=== PATIENT | male | born 1950 | race Caucasian/White ===

== ENCOUNTER → 2018-11-14 | Outpatient (CLI) | payer MEDICARE | LOC: COL.RAD 11:09 | DX: M51.06 Intervertebral disc disorders with myelopathy, lumbar region (principal); M47.16 Other spondylosis with myelopathy, lumbar region; R26.81 Unsteadiness on feet ==

== ENCOUNTER → 2018-11-25 | Outpatient (CLI) | payer MEDICARE | LOC: BHSO 12:49 | DX: F41.1 Generalized anxiety disorder (principal) ==

== ENCOUNTER → 2018-12-26 | Outpatient (CLI) | payer MEDICARE | LOC: BHSO 13:29 | DX: F41.1 Generalized anxiety disorder (principal) | CPT/HCPCS: G0463 ==

== ENCOUNTER → 2019-03-27 | Outpatient (CLI) | payer MEDICARE | LOC: BHSO 12:55 | DX: F41.0 Panic disorder [episodic paroxysmal anxiety] (principal) | CPT/HCPCS: G0463 ==

== ENCOUNTER → 2019-06-26 | Outpatient (CLI) | payer MEDICARE | LOC: BHSO 11:16 | DX: F41.1 Generalized anxiety disorder (principal) | CPT/HCPCS: G0463 ==

== ENCOUNTER → 2019-11-30 | Outpatient (CLI) | payer MEDICARE | LOC: BHSO 10:52 | DX: F41.1 Generalized anxiety disorder (principal) | CPT/HCPCS: G0463 ==

== ENCOUNTER → 2020-01-10 | Outpatient (CLI) | payer MEDICARE | LOC: BHSO 13:34 | DX: F41.1 Generalized anxiety disorder (principal) | CPT/HCPCS: G0463 ==

== ENCOUNTER → 2021-03-26 | Outpatient (CLI) | payer MEDICARE | LOC: COL.CARD 12:13 | DX: R41.89 Other symptoms and signs involving cognitive functions and awareness (principal); R40.4 Transient alteration of awareness ==

== ENCOUNTER 2021-06-07 15:06 | Inpatient (IN) | payer MEDICARE ==
[~2021-06-07] VITALS: Ht 180.3 cm; Wt 76.6 kg
[2021-06-07] VITALS (173 sets, daily range): BP systolic 70–143; BP diastolic 46–78; PULSE 79; TEMP 98.7; O2SAT 86–100
--- NOTE | 2021-06-07 17:10 | NUR ---
PT arrived via EMS. PT on BIPAP. PT is in respiratory distress and using accessory muscle to breathe and grunting. PT was moved to ICU04. PT was asked if he would want to be intubated and placed on mechanical ventilation, ART line placed, and a central line. PT consented verbally YES, consent was signed. Room is prepared for intubation. AA, RT called.
--- NOTE | 2021-06-07 18:23 | NUR ---
AA sedated, intubated PT, See notes. 1822: 8.0 ETT 26 @ Teeth. During intubation SATS fell into the mid 80s but quickly recovered with VENT to 100 %. VENT settings: FIO2 100%, TV 500, R 24 P 14 Art Line placed by AA @184 right radial. OG placed @1840 59 @ lip with gastric drainage, placed on LIS. PT sedation maintenace started- PROP and FENT,LEVO see GTT titrations. Xray done @ 1850, see report. Will continue to monitor closely.
[2021-06-07] MEDS ORDERED: PEPCID 20MG TAB20 MG PO (18:58)
[2021-06-07] MEDS ORDERED: ASPIRIN 81M81 MG/TA2 PO (18:59)
[2021-06-07] MEDS ORDERED: HYZAAR 25 MG-101 TAB PO (18:59)
[2021-06-07] MEDS ORDERED: OMEGA-3 1000 MG1 CAP PO (18:59)
[2021-06-07] MEDS ORDERED: MULTI VITAMINS1 TAB PO (18:59)
[2021-06-07] MEDS ORDERED: DEPAKOTE 250MG250 MG PO (19:00)
[2021-06-07] MEDS ORDERED: ZOLOFT 100MG100 MG PO (19:00)
[2021-06-07] MEDS ORDERED: VITAMINC1000TA (19:00)
[2021-06-07] MEDS ORDERED: TURMERIC500 MG PO (19:00)
[2021-06-07] MEDS ORDERED: PROSCAR 5MG5 MG PO (19:00)
--- NOTE | 2021-06-07 19:00 | NUR ---
Received report from XI Orozco.
[2021-06-07] MEDS ORDERED: NATURE'S BLE1000 MCG (19:01)
--- NOTE | 2021-06-07 19:30 | NUR ---
Patient intubated and sedated. Resting quietly in bed. Continues to receive fentanyl, propofol, and levophed drips. Tolerating well. Vitals within normal limits.
--- NOTE | 2021-06-07 20:30 | NUR ---
Dr. Mckinley at bedside for central line insertion at approximately 1999. Right femoral non-tunneled triple lumen placed. Per Dr. Mckinley, x-ray not needed to confirm placement. Line available to use.
[2021-06-07 21:42] LABS: C-REACTIVE PROTEIN 22.98 mg/dL (0.00-0.50)
[2021-06-07 21:59] LABS: VALPROIC ACID (DEPAKENE) < 12.5 ug/mL (43.5-90.5)
[2021-06-08] VITALS (608 sets, daily range): BP systolic 98–147; BP diastolic 52–75; PULSE 58–74; TEMP 97.9–99.1; O2SAT 70–100
[2021-06-08 03:55] LABS: ARTERIAL BLD GAS O2 SATURATION 98.4 % (92-100); ARTERIAL BLD GAS TCO2 CT 24.7; ARTERIAL BLOOD GAS BASE EXCESS -0.8 (-2-2); ARTERIAL BLOOD GAS HCO3 23.5 meq/L (22-26); ARTERIAL BLOOD GAS pH 7.41 (7.35-7.45)
[2021-06-08 03:56] LABS: ARTERIAL BLOOD GAS PO2 134.1 mmHg (80-100)
[2021-06-08 05:13] LABS: BASO % 0.2 % (0.0-2.0); EOS % 0.1 % (0.0-4.0); GRAN # 20.7 K/mm3 (1.4-6.5); GRAN % 92.7 % (42.2-75.2); HEMOGLOBIN 12.1 g/dl (13.5-18.0); LYMPH # 0.8 K/mm3 (1.2-3.4); LYMPH % 3.3 % (20.0-51.0); MEAN CELL VOLUME 90 fl (80.0-100.0); MEAN CORPUSCULAR HEMOGLOBIN 30 pg (27-31); MEAN CORPUSCULAR HGB CONC 33 g/dl (33.0-37.0); MEAN PLATELET VOLUME 10.8 fl (7.4-10.4); MONO # 0.5 K/mm3 (0.1-0.6); MONO % 2.3 % (1.7-9.3); PLATELET COUNT 334 K/mm3 (130-400); RED BLOOD COUNT 4.07 M/mm3 (4.20-5.60); REDCELL DISTRIBUTION WIDTH-CV 13.9 % (11.5-14.5)
[2021-06-08 05:17] LABS: HEMATOCRIT 36.5 % (42.0-52.0)
[2021-06-08 05:37] LABS: CALCIUM 7.4 mg/dL (8.4-10.2); CREATININE, serum 0.7 mg/dL (0.72-1.25); MAGNESIUM 2.4 mg/dL (1.6-2.6); PHOSPHOROUS 3.3 mg/dL (2.3-4.7); POTASSIUM 3.4 mmol/L (3.5-4.5)
--- NOTE | 2021-06-08 07:25 | NUR ---
Report given to XI Dugan.
--- NOTE | 2021-06-08 11:26 | NUR ---
Erin spoke with , Xiomara via phone due to pt is covid + and intubated. The reports prior to coming to hospital the pt was independent on all ADLs and did not use any DME and still drives. The pt PCP is salvatore Woody and gets his medications from [facility] or [facility] depending on intermediate meds. Xiomara reports they have a DPOA-HC. Xiomara, aylin, . d/c:home w/
--- NOTE | 2021-06-08 16:47 | NUR ---
Pt tolerated pronation well with no difficulties.
[2021-06-09] VITALS (17 sets, daily range): BP systolic 100–139; BP diastolic 55–82; PULSE 64–97; TEMP 97.9–99.1
[2021-06-09 03:56] LABS: ARTERIAL BLD GAS O2 SATURATION 96.1 % (92-100); ARTERIAL BLOOD GAS BASE EXCESS -0.9 (-2-2); ARTERIAL BLOOD GAS HCO3 22.9 meq/L (22-26); ARTERIAL BLOOD GAS PCO2 35.4 mmHg (35-45); ARTERIAL BLOOD GAS PO2 80.7 mmHg (80-100); ARTERIAL BLOOD GAS pH 7.43 (7.35-7.45)
[2021-06-09 04:15] LABS: HEMOGLOBIN 11.9 g/dl (13.5-18.0); MEAN CELL VOLUME 90 fl (80.0-100.0); MEAN CORPUSCULAR HEMOGLOBIN 30 pg (27-31); MEAN CORPUSCULAR HGB CONC 33 g/dl (33.0-37.0); MEAN PLATELET VOLUME 10.7 fl (7.4-10.4); PLATELET COUNT 323 K/mm3 (130-400); RED BLOOD COUNT 4.03 M/mm3 (4.20-5.60)
[2021-06-09 04:23] LABS: HEMATOCRIT 36.4 % (42.0-52.0)
[2021-06-09 04:46] LABS: ALBUMIN 1.9 gm/dL (3.4-4.8); BILIRUBIN,TOTAL 0.6 mg/dL (0.2-1.2); CALCIUM 7.5 mg/dL (8.4-10.2); CREATININE, serum 0.65 mg/dL (0.72-1.25); MAGNESIUM 2.6 mg/dL (1.6-2.6); PHOSPHOROUS 2.1 mg/dL (2.3-4.7); POTASSIUM 3.8 mmol/L (3.5-4.5)
[2021-06-09 04:52] LABS: LYMPHOCYTE 4 % (20.0-51.0); NEUTROPHILS 95 % (42.0-75.2); PLATELET ESTIMATE NORMAL (NORMAL)
--- NOTE | 2021-06-09 06:29 | NUR ---
NO SEDATION VACATION PATIENT IS PRONE
--- NOTE | 2021-06-09 07:00 | NUR ---
Assumed care of pt. All lines,tubed,GTTS checked and verified. VSS. PT is still proned and tolerating tube feed at 25ml/hr.
--- NOTE | 2021-06-09 11:02 | NUR ---
Chair Maker contacted Nell Chair Maker at patient's PCP office and requested copy of DPOA-HC. Nell faxed DPOA-HC which designates patient's , Xiomara as primary. Patient has a secondary named Christian. JB placed DPOA-HC on patient's chart.
--- NOTE | 2021-06-09 17:20 | NUR ---
PT BECOMES AGGITATED WHILE PRONED. INCREASED SEDATION IS NEEDED.
[2021-06-10] VITALS (603 sets, daily range): BP systolic 99–137; BP diastolic 58–72; PULSE 60–87; TEMP 96.7–98; O2SAT 79–100
[2021-06-10 04:17] LABS: ARTERIAL BLD GAS O2 SATURATION 94.7 % (92-100); ARTERIAL BLD GAS TCO2 CT 26.6; ARTERIAL BLOOD GAS BASE EXCESS 0.8 (-2-2); ARTERIAL BLOOD GAS HCO3 25.4 meq/L (22-26); ARTERIAL BLOOD GAS PCO2 40.7 mmHg (35-45); ARTERIAL BLOOD GAS PO2 71.2 mmHg (80-100); ARTERIAL BLOOD GAS pH 7.41 (7.35-7.45)
[2021-06-10 05:16] LABS: HEMOGLOBIN 11.7 g/dl (13.5-18.0); MEAN CELL VOLUME 90 fl (80.0-100.0); MEAN CORPUSCULAR HEMOGLOBIN 29 pg (27-31); MEAN CORPUSCULAR HGB CONC 32 g/dl (33.0-37.0); PLATELET COUNT 369 K/mm3 (130-400); RED BLOOD COUNT 4.03 M/mm3 (4.20-5.60); REDCELL DISTRIBUTION WIDTH-CV 13.9 % (11.5-14.5)
[2021-06-10 05:30] LABS: HEMATOCRIT 36.2 % (42.0-52.0)
[2021-06-10 05:31] LABS: CALCIUM 7.4 mg/dL (8.4-10.2); CREATININE, serum 0.61 mg/dL (0.72-1.25); MAGNESIUM 2.8 mg/dL (1.6-2.6); PHOSPHOROUS 2.5 mg/dL (2.3-4.7); POTASSIUM 4.3 mmol/L (3.5-4.5)
--- NOTE | 2021-06-10 05:51 | NUR ---
NO SEDATION VACATION PATIENT IS PRONE
[2021-06-10 06:04] LABS: LYMPHOCYTE 5 % (20.0-51.0); METAMYELOCYTE 1 % (0-0); NEUTROPHILS 92 % (42.0-75.2)
[2021-06-10 06:05] LABS: PLATELET ESTIMATE NORMAL (NORMAL)
--- NOTE | 2021-06-10 15:30 | NUR ---
ARTERIAL LINE AND RIGHT FEMORAL CENTRAL LINE ARE DISCONTINUED PER DR. GONZALEZ VERBAL ORDER. THE RIGHT FEMORAL SITE BLEEDS FOR LONGER PERIOD OF TIME THAN NORMAL. FIRM PRESSURE WAS HELD FOR APPROXIMATELY 10 MINUTES PRIOR TO PLACING DRESSING.
--- NOTE | 2021-06-10 16:15 | NUR ---
UPON ENTERING THE ROOM TO PRONE PATIENT. BLOOD IS SEE ON SHEET UNDER PATIENT. HE HAD BEEN HAVING A CONSISTENT OOZE FROM RIGHT FEMORAL VENOUS SITE. PATIENT IS CLEANED UP AND PRESSURE HELD TO SITE FOR SEVERAL MORE MINUTES PRIOR TO PLACING A PRESSURE DRESSING TO THE RIGHT GROIN SITE. SITE OBSERVED FOR SEVERAL MINUTES THEN ONCE DETERMINED IT IS STABLE, PATIENT WAS PLACED IN PRONE POSITION.
--- NOTE | 2021-06-10 17:57 | NUR ---
PATIENT CHECKED MULTIPLE TIMES AFTER PRONING TO MAKE SURE HIS GROIN SITE IS STABLE. NO BLEEDING OBSERVED. PRESSURE DRESSING REMAINS IN PLACE.
[2021-06-11] VITALS (640 sets, daily range): BP systolic 117–137; BP diastolic 67–71; PULSE 58–76; TEMP 97.6–98.4; O2SAT 80–99
[2021-06-11 03:49] LABS: ARTERIAL BLD GAS O2 SATURATION 93.6 % (92-100); ARTERIAL BLD GAS TCO2 CT 27.2; ARTERIAL BLOOD GAS BASE EXCESS 1.4 (-2-2); ARTERIAL BLOOD GAS HCO3 25.9 meq/L (22-26); ARTERIAL BLOOD GAS PCO2 40.6 mmHg (35-45); ARTERIAL BLOOD GAS PO2 63.4 mmHg (80-100); ARTERIAL BLOOD GAS pH 7.42 (7.35-7.45)
--- NOTE | 2021-06-11 05:04 | NUR ---
SEDATION VACATION NOT DONE DUE TO PRONE POSITIONING.
[2021-06-11 05:27] LABS: HEMOGLOBIN 11.7 g/dl (13.5-18.0); MEAN CELL VOLUME 90 fl (80.0-100.0); MEAN CORPUSCULAR HEMOGLOBIN 30 pg (27-31); MEAN CORPUSCULAR HGB CONC 34 g/dl (33.0-37.0); MEAN PLATELET VOLUME 11.4 fl (7.4-10.4); PLATELET COUNT 364 K/mm3 (130-400); RED BLOOD COUNT 3.88 M/mm3 (4.20-5.60); REDCELL DISTRIBUTION WIDTH-CV 13.9 % (11.5-14.5)
[2021-06-11 05:29] LABS: HEMATOCRIT 34.9 % (42.0-52.0)
[2021-06-11 05:40] LABS: CALCIUM 7.4 mg/dL (8.4-10.2); CREATININE, serum 0.55 mg/dL (0.72-1.25); POTASSIUM 4.5 mmol/L (3.5-4.5)
[2021-06-11 05:51] LABS: C-REACTIVE PROTEIN 6.82 mg/dL (0.00-0.50)
--- NOTE | 2021-06-11 07:30 | NUR ---
RECEIVED REPORT FROM XI LUBIN. PT RESTING IN PRONED POSITION. VENT SETTINGS: AC, 50%, PEEP 10, RR 24, TV 500. FC PATENT AND DRAINING TO GRAVITY. OGT WITH TF INFUSING AT 25 ML/HR. INSHORE UNDERSEA WARFARE OFFICER IN PLACE. VSS. SEE GTT FLOWSHEET.
--- NOTE | 2021-06-11 08:04 | NUR ---
DR GONZALEZ AT BEDSIDE. ADJUSTING VENT SETTIGNS TO FIO2 OF 45%.
--- NOTE | 2021-06-11 09:20 | NUR ---
PT UNPRONED AT THIS TIME. TOLERATED WELL. TF INCREASED TO 80 ML/HR PER ORDERS WHILE SUPINE.
--- NOTE | 2021-06-11 16:05 | NUR ---
PT PRONED AT THIS TIME. TOLERATED WELL. TF DECREASED BACK TO 25ML/HR.
--- NOTE | 2021-06-11 21:00 | NUR ---
Patient intubated and sedated. Also prone. Patient repositioned. Assessment complete and charted.
[2021-06-12] VITALS (712 sets, daily range): BP systolic 107–136; BP diastolic 54–71; PULSE 67–78; TEMP 97–99; O2SAT 81–100
[2021-06-12 05:33] LABS: HEMOGLOBIN 11.7 g/dl (13.5-18.0); MEAN CELL VOLUME 89 fl (80.0-100.0); MEAN CORPUSCULAR HEMOGLOBIN 30 pg (27-31); MEAN CORPUSCULAR HGB CONC 33 g/dl (33.0-37.0); MEAN PLATELET VOLUME 11.8 fl (7.4-10.4); PLATELET COUNT 374 K/mm3 (130-400); RED BLOOD COUNT 3.96 M/mm3 (4.20-5.60); REDCELL DISTRIBUTION WIDTH-CV 13.5 % (11.5-14.5)
[2021-06-12 05:38] LABS: HEMATOCRIT 35.3 % (42.0-52.0)
--- NOTE | 2021-06-12 05:49 | NUR ---
Patient remained intubated and sedated throughout night. Otherwise uneventful night. Repositioned this AM. Currently prone.
[2021-06-12 05:51] LABS: BILIRUBIN,TOTAL 0.3 mg/dL (0.2-1.2); CALCIUM 7.4 mg/dL (8.4-10.2); CREATININE, serum 0.57 mg/dL (0.72-1.25); POTASSIUM 4.5 mmol/L (3.5-4.5)
[2021-06-12 06:12] LABS: BAND 1 % (0-10); EOSINOPHIL 1 % (0-4); LYMPHOCYTE 6 % (20.0-51.0); NEUTROPHILS 91 % (42.0-75.2)
[2021-06-12 06:13] LABS: PLATELET ESTIMATE NORMAL (NORMAL)
--- NOTE | 2021-06-12 07:00 | NUR ---
RECEIVED REPORT FROM XI ORTA. PT RESTING IN PRONE POSITION, NO CHANGES ON VENT SETTINGS. OGT WITH TF INFUSING AT 25 ML/HR. SCHOLARSHIP COUNSELOR IN PLACE. VSS. SEE GTT FLOWSHEET.
--- NOTE | 2021-06-12 07:23 | NUR ---
Report given to XI Magana
--- NOTE | 2021-06-12 08:15 | NUR ---
DR GONZALEZ AT BEDSIDE FOR ASSESSMENT. DECREASES FIO2 TO 40%, PROVIDER STATES IF POX DOES NOT REMAIN ABOVE 90% CONSISTENTLY TURN FIO2 BACK UP. IF HE TOELRATES OK, THEN TRY TO DECREASE PEEP TO 9 TODAY BUT LATER. PT UNPRONED AT THIS TIME. TOLERATED OK. TF INCREASED TO 80ML/HR WHILE SUPINE PER INSTRUCTIONS.
--- NOTE | 2021-06-12 09:00 | NUR ---
PT SWITCHED FROM PROPOFOL TO VERSED BECAUSE TRIGLYCERIDES LEVEL, PER DR GONZALEZ. DR GONZALEZ STATES IT IS OK TO INCREASE VERSED QUICKER TO ACCOMADTE THE SWITCH.
--- NOTE | 2021-06-12 15:00 | NUR ---
Contacted to change PICC dressing. sterile dressing change done with a moderate amount of reddish gelled fluid. site cleaned with chloraprep x 2, skin prep, stat lock, and tegaderm applied. no further drainage noted. arm wrapped with an yuliana to protect catheter.
--- NOTE | 2021-06-12 15:50 | NUR ---
TF DECREASED TO 64 ML/HR WITH FLUSHES DECRESED TO 30 ML Q4HR, PER NEW ORDERS.
--- NOTE | 2021-06-12 17:05 | NUR ---
PT CLEANED UP AND ROLLED IN BED. PT COUGHS AGAINST VENT AND OPENS EYES AND LOOKS AROUND. DOES NOT FOLLOW COMMANDS. PT ABLE TO FALL BACK TO SLEEP ONCE NOT BEING MESSED WITH ANYMORE. VSS.
[2021-06-13] VITALS (698 sets, daily range): BP systolic 101–186; BP diastolic 60–98; PULSE 74–132; TEMP 98.1–100; O2SAT 76–100
[2021-06-13 04:28] LABS: ARTERIAL BLD GAS O2 SATURATION 82.9 % (92-100); ARTERIAL BLOOD GAS HCO3 30.5 meq/L (22-26); ARTERIAL BLOOD GAS PCO2 48.3 mmHg (35-45); ARTERIAL BLOOD GAS pH 7.42 (7.35-7.45)
[2021-06-13 04:29] LABS: HEMATOCRIT 37.4 % (42.0-52.0); MEAN CELL VOLUME 91 fl (80.0-100.0); MEAN CORPUSCULAR HEMOGLOBIN 29 pg (27-31); MEAN CORPUSCULAR HGB CONC 32 g/dl (33.0-37.0); MEAN PLATELET VOLUME 10.9 fl (7.4-10.4); PLATELET COUNT 385 K/mm3 (130-400)
[2021-06-13 04:36] LABS: ARTERIAL BLOOD GAS PO2 46.7 mmHg (80-100)
[2021-06-13 04:46] LABS: CALCIUM 7.3 mg/dL (8.4-10.2); CREATININE, serum 0.6 mg/dL (0.72-1.25); POTASSIUM 4.3 mmol/L (3.5-4.5)
[2021-06-13 05:08] LABS: ANISOCYTOSIS 1+; BAND 12 % (0-10); EOSINOPHIL 2 % (0-4); HYPOCHROMIA 1+; LYMPHOCYTE 10 % (20.0-51.0); METAMYELOCYTE 1 % (0-0); NEUTROPHILS 73 % (42.0-75.2)
--- NOTE | 2021-06-13 07:00 | NUR ---
Pt is intubated and sedated. VSS. Will continue to montior.
--- NOTE | 2021-06-13 09:15 | NUR ---
SEDATION PLACED ON HOLD PER . PT DOES NOT FOLLOW COMMANDS OR RESPOND TO PAIN AT THIS TIME. 0945-PT PLACED ON VENT WEANING TRIAL AND IS APPEARING TO DO WELL AT THIS TIME. WILL CONTINUE TO MONTIOR. 1000- PT STILL NOT FOLLOWING COMMANDS, WILL CONTINUE TO ASSESS. IF NO IMPOVEMENT BY [address]
--- NOTE | 2021-06-13 11:00 | NUR ---
SEDATION RESTARTED PER
--- NOTE | 2021-06-13 11:00 | NUR ---
PT ABLE TO FOLLOW COMMANDS AND MOVE ALL EXTREMETIES. BILATERAL HANDS WEAK AND SWOLLEN SO UNABLE TO DEFENCE INTELLIGENCE ANALYST HARD. PT BECOMING HYPERTENSIVE, TACHYCARDIC, AND HYPOXIC. NOTIFIED. SEDATION RESTARTED. PT PLACED BACK ON ASSIST CONTROL MODE AND PEEP INCREASED TO 10. WILL CONTINUE TO MONITOR.
[2021-06-13 12:07] LABS: ARTERIAL BLD GAS O2 SATURATION 85.5 % (92-100); ARTERIAL BLD GAS TCO2 CT 28.5; ARTERIAL BLOOD GAS BASE EXCESS 2.7 (-2-2); ARTERIAL BLOOD GAS HCO3 27.2 meq/L (22-26); ARTERIAL BLOOD GAS PCO2 41.9 mmHg (35-45); ARTERIAL BLOOD GAS pH 7.43 (7.35-7.45)
--- NOTE | 2021-06-13 17:00 | NUR ---
SEDATION VACATION DONE EARLIER TODAY. PT CURRENTLY PRONED.
[2021-06-14] VITALS (769 sets, daily range): BP systolic 109–128; BP diastolic 65–82; PULSE 74–93; TEMP 97.8–99.2; O2SAT 89–100
[2021-06-14 03:02] LABS: ARTERIAL BLD GAS O2 SATURATION 98.3 % (92-100); ARTERIAL BLD GAS TCO2 CT 31.6; ARTERIAL BLOOD GAS BASE EXCESS 5.6 (-2-2); ARTERIAL BLOOD GAS HCO3 30.2 meq/L (22-26); ARTERIAL BLOOD GAS PCO2 44.1 mmHg (35-45); ARTERIAL BLOOD GAS PO2 107.5 mmHg (80-100); ARTERIAL BLOOD GAS pH 7.45 (7.35-7.45)
[2021-06-14 04:36] LABS: HEMATOCRIT 37.2 % (42.0-52.0); HEMOGLOBIN 11.9 g/dl (13.5-18.0); MEAN CELL VOLUME 91 fl (80.0-100.0); MEAN CORPUSCULAR HEMOGLOBIN 29 pg (27-31); MEAN CORPUSCULAR HGB CONC 32 g/dl (33.0-37.0); MEAN PLATELET VOLUME 11.2 fl (7.4-10.4); PLATELET COUNT 365 K/mm3 (130-400); RED BLOOD COUNT 4.08 M/mm3 (4.20-5.60); REDCELL DISTRIBUTION WIDTH-CV 14.2 % (11.5-14.5)
[2021-06-14 04:52] LABS: CALCIUM 7.7 mg/dL (8.4-10.2); CREATININE, serum 0.6 mg/dL (0.72-1.25); POTASSIUM 4.5 mmol/L (3.5-4.5)
[2021-06-14 05:16] LABS: BAND 10 % (0-10); EOSINOPHIL 1 % (0-4); LYMPHOCYTE 7 % (20.0-51.0); METAMYELOCYTE 1 % (0-0); NEUTROPHILS 79 % (42.0-75.2); NUCLEATED RED BLOOD CELL 1 (0-6)
[2021-06-14 05:17] LABS: ANISOCYTOSIS 1+
--- NOTE | 2021-06-14 07:00 | NUR ---
Pt is intubated, sedated, and proned. VSS. Will continue to monitor.
--- NOTE | 2021-06-14 20:30 | NUR ---
PM ASSESSMENT COMPLETE. PT TOLERATING VENTILATOR WELL, CURRENTLY IN PRONE POSITION. MOVES EXTREMETIES AND OPENS EYES TO SPEECH. R WRIST PIV UNABLE TO FLUSH, REMOVED. TIP INTACT, PRESSURE HELD AND GAUZE DRESSING APPLIED. SPOKE TO PT'S OVER PHONE, UPDATED WITH POC. WILL CONTINUING FREQUENT REPOSITIONING AND ORAL CARE OVER NIGHT. VSS AT THIS TIME, WILL CONTINUE TO MONITOR.
--- NOTE | 2021-06-14 22:39 | NUR ---
PT REPOSITIONED TO FACE OPPOSITE SIDE WHILE PRONE. NOTED SKIN TEAR TO LEFT EAR. GAUZE DRESSING PLACED.
[2021-06-15] VITALS (664 sets, daily range): BP systolic 115–137; BP diastolic 61–79; PULSE 75–83; TEMP 97.2–98; O2SAT 86–100
[2021-06-15 04:44] LABS: ARTERIAL BLD GAS O2 SATURATION 97.8 % (92-100); ARTERIAL BLD GAS TCO2 CT 32.6; ARTERIAL BLOOD GAS BASE EXCESS 6.1 (-2-2); ARTERIAL BLOOD GAS HCO3 31.1 meq/L (22-26); ARTERIAL BLOOD GAS PCO2 46.8 mmHg (35-45); ARTERIAL BLOOD GAS PO2 98.1 mmHg (80-100); ARTERIAL BLOOD GAS pH 7.44 (7.35-7.45)
[2021-06-15 04:56] LABS: HEMOGLOBIN 11.2 g/dl (13.5-18.0); MEAN CELL VOLUME 91 fl (80.0-100.0); MEAN CORPUSCULAR HEMOGLOBIN 30 pg (27-31); MEAN CORPUSCULAR HGB CONC 33 g/dl (33.0-37.0); MEAN PLATELET VOLUME 10.8 fl (7.4-10.4); PLATELET COUNT 327 K/mm3 (130-400); REDCELL DISTRIBUTION WIDTH-CV 14.4 % (11.5-14.5)
[2021-06-15 05:00] LABS: HEMATOCRIT 34.4 % (42.0-52.0)
--- NOTE | 2021-06-15 05:01 | NUR ---
SEDATION VACATION NOT DONE DUE TO PRONE POSITIONING.
[2021-06-15 05:15] LABS: CALCIUM 7.6 mg/dL (8.4-10.2); CREATININE, serum 0.56 mg/dL (0.72-1.25); POTASSIUM 4.7 mmol/L (3.5-4.5)
[2021-06-15 05:36] LABS: BAND 5 % (0-10); BASOPHIL 1 % (0-2); EOSINOPHIL 3 % (0-4); HYPOCHROMIA 2+; LYMPHOCYTE 9 % (20.0-51.0); METAMYELOCYTE 2 % (0-0); NEUTROPHILS 76 % (42.0-75.2); NUCLEATED RED BLOOD CELL 1 (0-6); PLATELET ESTIMATE NORMAL (NORMAL)
[2021-06-15 05:37] LABS: ANISOCYTOSIS 1+
[2021-06-15 05:38] LABS: OVALOCYTES 1+
--- NOTE | 2021-06-15 07:45 | NUR ---
Pt morning assessment completed. Medications, lines and tubes verified. PT opens eyes to stimulation. Pt turned form prone to supine with assistance of RT and 3 RNs. Mendiola care doen at this time.
--- NOTE | 2021-06-15 12:59 | NUR ---
Gave cruzito an update on PTs status.
--- NOTE | 2021-06-15 15:53 | NUR ---
Patient remains on vent. Patient's provided update from patient's RN.
--- NOTE | 2021-06-15 15:57 | NUR ---
PT PRONED WITH ASSISTANCE OF RT AND 2 RNS WITHOUT COMPLICATION.
[2021-06-16] VITALS (541 sets, daily range): BP systolic 106–127; BP diastolic 60–72; PULSE 70–75; TEMP 97.7–99; O2SAT 67–100
[2021-06-16 04:02] LABS: ARTERIAL BLD GAS O2 SATURATION 97.4 % (92-100); ARTERIAL BLD GAS TCO2 CT 34.7; ARTERIAL BLOOD GAS HCO3 33.1 meq/L (22-26); ARTERIAL BLOOD GAS PCO2 51.6 mmHg (35-45); ARTERIAL BLOOD GAS PO2 93.3 mmHg (80-100); ARTERIAL BLOOD GAS pH 7.43 (7.35-7.45)
[2021-06-16 04:07] LABS: MEAN CELL VOLUME 92 fl (80.0-100.0); MEAN CORPUSCULAR HEMOGLOBIN 29 pg (27-31); MEAN CORPUSCULAR HGB CONC 31 g/dl (33.0-37.0); MEAN PLATELET VOLUME 10.5 fl (7.4-10.4); PLATELET COUNT 297 K/mm3 (130-400); REDCELL DISTRIBUTION WIDTH-CV 14.5 % (11.5-14.5)
[2021-06-16 04:27] LABS: ALBUMIN 2.4 gm/dL (3.4-4.8); BILIRUBIN,TOTAL 0.4 mg/dL (0.2-1.2); CALCIUM 7.9 mg/dL (8.4-10.2); CREATININE, serum 0.54 mg/dL (0.72-1.25); POTASSIUM 4.5 mmol/L (3.5-4.5); TOTAL PROTEIN 4.7 gm/dL (6.2-8.1)
[2021-06-16 05:11] LABS: BAND 4 % (0-10); BASOPHIL 1 % (0-2); EOSINOPHIL 3 % (0-4); LYMPHOCYTE 15 % (20.0-51.0); METAMYELOCYTE 1 % (0-0); NEUTROPHILS 71 % (42.0-75.2); PLATELET ESTIMATE NORMAL (NORMAL)
[2021-06-16 05:12] LABS: HYPOCHROMIA 2+; OVALOCYTES 1+
--- NOTE | 2021-06-16 07:00 | NUR ---
RECEIVED REPORT FROM XI SHUKLA. PT RESTING IN PRONE POSITION ON VENT SETTINGS: TV 500, PEEP 10, RR 24, 50%. OGT WITH TF INFUSING AT 64 ML/HR. FC PATENT AND DRAINING TO GRAVITY. VSS. ACUPUNCTURIST IN PLACE. SEE FLOWSHEET.
--- NOTE | 2021-06-16 08:20 | NUR ---
PT UNPRONED A THIS TIME. TOLERATED WELL. VSS. DR GONZALEZ AT BEDSIDE FOR ASSESSMENT AND MAKING ADJUSTMENTS TO VENT SETTINGS: TV 480, PEEP 8, FIO2 45%.
--- NOTE | 2021-06-16 15:40 | NUR ---
PT PRONED AT THIS TIME. TOLERATED WELL. VSS. MANAGER BANK REMAIN IN PLACE.
--- NOTE | 2021-06-16 20:00 | NUR ---
Recieved report from Izzy. Pt resting in bed, proned at this time. assessment completed. does not appear to be uncomfortable or needing increased sedation. Vital signs stable at this time. Oral care completed. Red tinged oral secreations present. no return on suctioning.
[2021-06-17] VITALS (854 sets, daily range): BP systolic 101–115; BP diastolic 57–73; PULSE 71–111; TEMP 97.2–97.9; O2SAT 75–100
[2021-06-17 04:44] LABS: ARTERIAL BLD GAS O2 SATURATION 96.3 % (92-100); ARTERIAL BLD GAS TCO2 CT 33.2; ARTERIAL BLOOD GAS BASE EXCESS 7.2 (-2-2); ARTERIAL BLOOD GAS HCO3 31.8 meq/L (22-26); ARTERIAL BLOOD GAS PCO2 45.6 mmHg (35-45); ARTERIAL BLOOD GAS PO2 78.5 mmHg (80-100); ARTERIAL BLOOD GAS pH 7.46 (7.35-7.45)
[2021-06-17 04:52] LABS: HEMOGLOBIN 11.3 g/dl (13.5-18.0); MEAN CELL VOLUME 91 fl (80.0-100.0); MEAN CORPUSCULAR HEMOGLOBIN 30 pg (27-31); MEAN CORPUSCULAR HGB CONC 33 g/dl (33.0-37.0); MEAN PLATELET VOLUME 10.5 fl (7.4-10.4); PLATELET COUNT 278 K/mm3 (130-400); RED BLOOD COUNT 3.81 M/mm3 (4.20-5.60); REDCELL DISTRIBUTION WIDTH-CV 14.8 % (11.5-14.5)
[2021-06-17 04:58] LABS: HEMATOCRIT 34.7 % (42.0-52.0)
--- NOTE | 2021-06-17 05:00 | NUR ---
NO SEDATION VACATION AT THIS TIME DUE TO PRONE POSITIONING. PT DOES OPEN EYES AND APPEARS TO LOOK TOWARD MY VOICE WHEN SPOKEN TO.
[2021-06-17 05:08] LABS: CALCIUM 7.9 mg/dL (8.4-10.2); CREATININE, serum 0.55 mg/dL (0.72-1.25); MAGNESIUM 2.3 mg/dL (1.6-2.6); POTASSIUM 4.4 mmol/L (3.5-4.5)
[2021-06-17 06:13] LABS: BAND 1 % (0-10); EOSINOPHIL 3 % (0-4); LYMPHOCYTE 14 % (20.0-51.0); NEUTROPHILS 78 % (42.0-75.2); PLATELET ESTIMATE NORMAL (NORMAL)
[2021-06-17 06:15] LABS: HYPOCHROMIA 1+
[2021-06-17 06:16] LABS: ANISOCYTOSIS 1+
[2021-06-18] VITALS (699 sets, daily range): BP systolic 107–138; BP diastolic 67–79; PULSE 73–90; TEMP 97.8–99; O2SAT 84–99
--- NOTE | 2021-06-18 00:30 | NUR ---
PT BATHED, LINENS CHANGED. PICC LINE SITE NOTED TO HAVE INCREASING BLOODY DRAINGAGE. OLD DRESSING REMOVED, LARGE CLOT AROUND INSERTION SITE, NOT REMOVED. NEW DRESSING APPLIED. PER DAY SHIFT REPORT, MARÍA WITH AIVS PLANNING TO PLACE NEW DRESSING AND SPECIALIZED BIOPATCH. WILL PASS ALONG IN REPORT. PT CONTINUES TO OPEN EYES SPONTANEOUSLY, APPEARS TO LOOK AT RN, HOWEVER DOES NOT FOLLOW ANY COMMANDS TO MOVE EXTREMETIES. PASSIVE ROM DONE FREQUENTLY WITH TURNS. ORBITAL AND SCROTAL EDEMA SEEMS TO BE LESSENING. BILAT FEET AND BILAT FOREARMS/HANDS STILL EDEMATOUS. WILL CONTINUE TO MONITOR.
[2021-06-18 04:33] LABS: ARTERIAL BLD GAS O2 SATURATION 93.9 % (92-100); ARTERIAL BLD GAS TCO2 CT 33.1; ARTERIAL BLOOD GAS BASE EXCESS 7.4 (-2-2); ARTERIAL BLOOD GAS HCO3 31.7 meq/L (22-26); ARTERIAL BLOOD GAS PCO2 43.9 mmHg (35-45); ARTERIAL BLOOD GAS PO2 69.6 mmHg (80-100); ARTERIAL BLOOD GAS pH 7.48 (7.35-7.45)
[2021-06-18 04:46] LABS: HEMOGLOBIN 10.8 g/dl (13.5-18.0); MEAN CELL VOLUME 92 fl (80.0-100.0); MEAN CORPUSCULAR HEMOGLOBIN 30 pg (27-31); MEAN CORPUSCULAR HGB CONC 32 g/dl (33.0-37.0); MEAN PLATELET VOLUME 10.9 fl (7.4-10.4); PLATELET COUNT 247 K/mm3 (130-400); RED BLOOD COUNT 3.64 M/mm3 (4.20-5.60); REDCELL DISTRIBUTION WIDTH-CV 14.9 % (11.5-14.5)
[2021-06-18 04:58] LABS: HEMATOCRIT 33.4 % (42.0-52.0)
[2021-06-18 05:09] LABS: CALCIUM 8.1 mg/dL (8.4-10.2); CREATININE, serum 0.57 mg/dL (0.72-1.25); MAGNESIUM 2.3 mg/dL (1.6-2.6)
[2021-06-18 05:53] LABS: BAND 3 % (0-10); EOSINOPHIL 2 % (0-4); LYMPHOCYTE 7 % (20.0-51.0); NEUTROPHILS 81 % (42.0-75.2); PLATELET ESTIMATE NORMAL (NORMAL)
[2021-06-18 05:54] LABS: ANISOCYTOSIS 1+; HYPOCHROMIA 1+
--- NOTE | 2021-06-18 07:00 | NUR ---
Pt is intubated and sedated. VSS. Will continue to montior.
--- NOTE | 2021-06-18 11:00 | NUR ---
Xiomara came and picked up pt's wedding ring, watch, and cellphone.
--- NOTE | 2021-06-18 11:30 | NUR ---
contacted by patient's nurse and asked to perform PICC dressing change. Sterile PICC dressing change done with a large amount of congeled blood under dressing. site cleansed with choraprep x 1, skin pre, stat lock, chlorhexidine impregnated disk, thrombin patch applied, and tegaderm applied. no further dainage noted. 4 x 4 and yuliana wrap applied.
--- NOTE | 2021-06-18 17:00 | NUR ---
PREVIOUS SEDATION VACATION. 1200 PT ABLE TO MOVE EXTREMETIES AND FOLLOW COMMANDS. PT PLACED ON VENT WEANING TRIAL BUT WAS UNSUCCESSFUL. WILL CONTINUE TO MONITOR.
--- NOTE | 2021-06-18 22:45 | NUR ---
PT O2 SATURATION READING 89-90% ON CURRENT VENT SETTINGS OF 40% AND PEEP OF 5. PT REPOSITIONED, SUCTIONED, NO IMPROVEMENT. PER RT RECOMMENDATION, O2 SAT INCREASED TO 50%, PEEP AT 8. WILL CONTINUE TO MONITOR.
[2021-06-19] VITALS (738 sets, daily range): BP systolic 101–129; BP diastolic 63–77; PULSE 70–101; TEMP 98.2–99.1; O2SAT 88–100
[2021-06-19 04:46] LABS: HEMOGLOBIN 10.9 g/dl (13.5-18.0); MEAN CELL VOLUME 94 fl (80.0-100.0); MEAN CORPUSCULAR HEMOGLOBIN 30 pg (27-31); MEAN CORPUSCULAR HGB CONC 31 g/dl (33.0-37.0); MEAN PLATELET VOLUME 10.9 fl (7.4-10.4); PLATELET COUNT 221 K/mm3 (130-400); REDCELL DISTRIBUTION WIDTH-CV 15.5 % (11.5-14.5)
[2021-06-19 04:48] LABS: HEMATOCRIT 34.9 % (42.0-52.0)
[2021-06-19 05:04] LABS: CALCIUM 7.9 mg/dL (8.4-10.2); CREATININE, serum 0.59 mg/dL (0.72-1.25); MAGNESIUM 2.3 mg/dL (1.6-2.6); POTASSIUM 3.9 mmol/L (3.5-4.5)
[2021-06-19 05:10] LABS: ARTERIAL BLD GAS O2 SATURATION 96.5 % (92-100); ARTERIAL BLD GAS TCO2 CT 31.1; ARTERIAL BLOOD GAS BASE EXCESS 4.8 (-2-2); ARTERIAL BLOOD GAS HCO3 29.7 meq/L (22-26); ARTERIAL BLOOD GAS PCO2 45.5 mmHg (35-45); ARTERIAL BLOOD GAS PO2 86.8 mmHg (80-100); ARTERIAL BLOOD GAS pH 7.43 (7.35-7.45)
[2021-06-19 05:53] LABS: BAND 4 % (0-10); EOSINOPHIL 7 % (0-4); LYMPHOCYTE 18 % (20.0-51.0); METAMYELOCYTE 2 % (0-0); NEUTROPHILS 65 % (42.0-75.2)
[2021-06-19 05:54] LABS: HYPOCHROMIA 1+; POLYCHROMASIA 1+
--- NOTE | 2021-06-19 07:00 | NUR ---
REPORT RECEIVED FROM XI LUBIN. PT RESTING EASILY ON CURRENT VENT SETTINGS: TV 450, PEEP 8, 40%, RR 24. OGT WITH TF INFUSING AT 64ML/HR. VSS. ENGINEERING DESIGNER IN PLACE. FC PATENT AND DRAINING TO GRAVITY. SEE GTT FLOWSHEET.
--- NOTE | 2021-06-19 08:20 | NUR ---
DR GONZALEZ AT BEDSIDE FOR ASSESSMENT. PROVIDER PLACES ALL SEDATION ON HOLD AND TF ON HOLD AT THIS TIME. PROVIDER STATES ONCE HE STARTS WAKING UP TO HAVE RT PLACE PT ON WEANING TRIAL TO SEE HOW HE DOES. ALLOW HIM TO RIDE THE WEANING TRIAL LONG HE TOLERATES. IF HR HITS ABOVE [address] PT ON SEDATION AND BACK TO AC MODE ON VENT. CAN RESTART TF AFTER PT WAKES UP SOME AND IS TOELRATING THE WEANING TRIAL OK FOR A LITTLE BIT. TONIGHT AT MIDNIGHT, PLACE PT'S SEDATION ALL ON HOLD AND TF ON HOLD. START WEANING TRIAL ABOUT 0700 ON 06/20/21 TO POTENTIALLY EXTUBATE IF TOLERATING OK AND IS FOLLOWING COMMANDS BETTER TOMORROW.
--- NOTE | 2021-06-19 10:45 | NUR ---
WEANING TRIAL STARTED BY RT SINCE PT IS AWAKE AND LOOKING AROUND. PT DOES NOT TRACK OR FOLLOW ANY SIMPLE COMMANDS AT THIS TIME. WILL MONITOR CLOSELY FOR ANY DISTRESS OR VS CHANGES. PER DR GONZALEZ, WILL ALLOW PT TO RIDE WEANING TRIAL LONG HE TOLERATES IT AND HR IS NOT ABOVE 110 CONSISTENTLY.
--- NOTE | 2021-06-19 12:09 | NUR ---
TF RESTARTED AT 64ML/HR. PT AWAKE BUT DROWSY. PT TURNS HEAD WHEN SPOKEN TO. WIGGLES BOTH FEET UPON REQUEST. PT ABLE TO SLIGHTLY LIFT RT HAND FINGERS BUT NO LEFT, NOTED BOTH HANDS VERY SWOLLEN. EXPLAINED TO PT ABOUT WEANING TRIAL AND POC. PT ENCOURAGED TO REST AND FOCUS ON BREATHING EASILY. WILL MONITOR CLOSELY.
--- NOTE | 2021-06-19 14:45 | NUR ---
PT ATTEMPTING TO LEAN OVER AND REACH FOR ETT. HR 125. VENT CHANGED BACK TO AC MODE WITH PREVIOUS SETTINGS, SEDATION RESTARTED AT PREVIOUS RATES PER DR GONZALEZ'S INSTRUCTIONS. PT'S GOT TO TALK TO HIM ON SPEAKER PHONE PRIOR TO HIM FALLING BACK TO SLEEP. UPDATED PT'S ON POC.
--- NOTE | 2021-06-19 20:54 | NUR ---
PM ASSESSMENT COMPLETE. PT OPENING EYES SPONTANEOUSLY. WRIGGLES TOES ON COMMAND, BUT NO HAND GRASP. HANDS BOTH EDEMATOUS, ELEVATED ON PILLOWS. SPOKE TO PT'S , RAMÓN, ON PHONE AND UPDATED/REVIEWED POC FOR THE NIGHT. WILL CONTINUE TO MONITOR.
[2021-06-20] VITALS (677 sets, daily range): BP systolic 117–152; BP diastolic 70–84; PULSE 77–100; TEMP 97.4–99; O2SAT 71–100
--- NOTE | 2021-06-20 01:00 | NUR ---
FENTANYL AND VERSED BOTH STOPPED AT THIS TIME PER DAYSHIFT RN REPORT PLAN FOR WEANING TRIAL AND POSSIBLE EXTUBATION THIS AM. WILL MONITOR PT CLOSELY FOR TOLERANCE.
--- NOTE | 2021-06-20 05:04 | NUR ---
SEDATION TURNED OFF SINCE [address] GONZALEZ. PT CALM, RESPONSIVE, NODDING OR SHAKING HEAD APPROPRIATELY TO QUESTIONS. ABLE TO MOVE ALL EXTREMETIES. HR AND BP SLIGHTLY ELEVATED. WILL CONTINUE TO MONITOR FOR ANY SIGNS OF DISTRESS.
[2021-06-20 05:08] LABS: HEMOGLOBIN 11.1 g/dl (13.5-18.0); MEAN CELL VOLUME 96 fl (80.0-100.0); MEAN CORPUSCULAR HEMOGLOBIN 30 pg (27-31); MEAN CORPUSCULAR HGB CONC 31 g/dl (33.0-37.0); MEAN PLATELET VOLUME 10.7 fl (7.4-10.4); PLATELET COUNT 227 K/mm3 (130-400); RED BLOOD COUNT 3.76 M/mm3 (4.20-5.60); REDCELL DISTRIBUTION WIDTH-CV 15.9 % (11.5-14.5)
[2021-06-20 05:10] LABS: HEMATOCRIT 35.9 % (42.0-52.0)
[2021-06-20 05:24] LABS: CALCIUM 8.2 mg/dL (8.4-10.2); CREATININE, serum 0.56 mg/dL (0.72-1.25); MAGNESIUM 2.5 mg/dL (1.6-2.6)
[2021-06-20 05:32] LABS: ARTERIAL BLD GAS O2 SATURATION 96.6 % (92-100); ARTERIAL BLD GAS TCO2 CT 26.8; ARTERIAL BLOOD GAS BASE EXCESS 2.8 (-2-2); ARTERIAL BLOOD GAS HCO3 25.7 meq/L (22-26)
[2021-06-20 05:49] LABS: BAND 10 % (0-10); EOSINOPHIL 5 % (0-4); LYMPHOCYTE 12 % (20.0-51.0); METAMYELOCYTE 1 % (0-0); NEUTROPHILS 66 % (42.0-75.2)
[2021-06-20 05:50] LABS: ANISOCYTOSIS 2+
[2021-06-20 05:51] LABS: PLATELET ESTIMATE NORMAL (NORMAL)
--- NOTE | 2021-06-20 10:09 | NUR ---
0945- , Xiomara, given patient update
--- NOTE | 2021-06-20 11:33 | NUR ---
PT EXTUBATED AT 0905 WITH RT ABBI AND THIS NURSE BEDSIDE. PT PLACED ON 4L OXYMASK PATIENT MAINTAINING O2 SATURATION AT THIS TIME. PTS ARMS AND LEGS ARE WEAK. DR GONZALEZ AWARE. SOCIAL WORK CALLED FOR A [facility] EVALUATION.
--- NOTE | 2021-06-20 12:19 | NUR ---
composite layup worker gave a referral to Sedrick at [facility] and contacted , Xiomara, and advised of the above information.
[2021-06-20 12:20] LABS: ARTERIAL BLD GAS O2 SATURATION 93.2 % (92-100); ARTERIAL BLD GAS TCO2 CT 27.1; ARTERIAL BLOOD GAS BASE EXCESS 3.2 (-2-2); ARTERIAL BLOOD GAS PO2 62.9 mmHg (80-100)
--- NOTE | 2021-06-20 19:11 | NUR ---
Report given to XI Allan.
--- NOTE | 2021-06-20 20:00 | NUR ---
PATIENT IS SLOW TO REACT TO QUESTIONS/ SOME CONFUSION WITH SWALOWING/ NPO AT THIS TIME
[2021-06-21] VITALS (349 sets, daily range): BP systolic 124–147; BP diastolic 54–71; PULSE 72–87; TEMP 97.4–98.8; O2SAT 77–99
[2021-06-21 00:30] LABS: ARTERIAL BLOOD GAS BASE EXCESS 5.5 (-2-2); ARTERIAL BLOOD GAS HCO3 28.2 meq/L (22-26); ARTERIAL BLOOD GAS PCO2 34.4 mmHg (35-45); ARTERIAL BLOOD GAS PO2 61.1 mmHg (80-100); ARTERIAL BLOOD GAS pH 7.53 (7.35-7.45)
[2021-06-21 00:31] LABS: ARTERIAL BLD GAS O2 SATURATION 92.5 % (92-100); ARTERIAL BLD GAS TCO2 CT 29.2
[2021-06-21 04:56] LABS: BASO # 0.1 K/mm3 (0.0-0.2); BASO % 0.8 % (0.0-2.0); EOS # 0.2 K/mm3 (0.0-0.7); EOS % 1.7 % (0.0-4.0); GRAN # 9.2 K/mm3 (1.4-6.5); GRAN % 81.3 % (42.2-75.2); HEMOGLOBIN 11.3 g/dl (13.5-18.0); LYMPH # 1.1 K/mm3 (1.2-3.4); MEAN CELL VOLUME 94 fl (80.0-100.0); MEAN CORPUSCULAR HEMOGLOBIN 30 pg (27-31); MEAN CORPUSCULAR HGB CONC 32 g/dl (33.0-37.0); MEAN PLATELET VOLUME 10.5 fl (7.4-10.4); MONO # 0.6 K/mm3 (0.1-0.6); MONO % 5.2 % (1.7-9.3); PLATELET COUNT 199 K/mm3 (130-400); RED BLOOD COUNT 3.74 M/mm3 (4.20-5.60); REDCELL DISTRIBUTION WIDTH-CV 15.9 % (11.5-14.5)
[2021-06-21 04:58] LABS: HEMATOCRIT 35.3 % (42.0-52.0)
[2021-06-21 05:38] LABS: CALCIUM 8.3 mg/dL (8.4-10.2); CREATININE, serum 0.57 mg/dL (0.72-1.25); MAGNESIUM 2.2 mg/dL (1.6-2.6); POTASSIUM 3.2 mmol/L (3.5-4.5)
--- NOTE | 2021-06-21 07:00 | NUR ---
RECEIVED REPORT FROM XI MARQUES. PT RESTING IN BED ON 6L OM. CALL LIGHT WITHIN REACH. VSS. FC PATENT AND DRAINING TO GRAVITY.
[2021-06-21 08:01] LABS: ARTERIAL BLD GAS O2 SATURATION 91.6 % (92-100); ARTERIAL BLD GAS TCO2 CT 27.2; ARTERIAL BLOOD GAS BASE EXCESS 3.3 (-2-2); ARTERIAL BLOOD GAS HCO3 26.1 meq/L (22-26); ARTERIAL BLOOD GAS PCO2 33.8 mmHg (35-45); ARTERIAL BLOOD GAS PO2 58.8 mmHg (80-100); ARTERIAL BLOOD GAS pH 7.51 (7.35-7.45)
--- NOTE | 2021-06-21 08:39 | NUR ---
NURSING BEDSIDE SWALLOW PERFORMED. PT TOLERATED WELL. NO CHOKING NOTED. DID NOTE THAT WHEN MALA CRAKER GIVEN, D/T DRY MOUTH STILL, PT TOOK LONGER TO CHEW THE SMALL BITE BUT DID NOT CHOKE WHEN SWALLOWING IT. SPOKE WITH DR GONZALEZ, PT CAN HAVE A MECH SOFT DIET TODAY AND WILL CONSIDER ADVANCING HIM TOMORROW.
--- NOTE | 2021-06-21 10:30 | NUR ---
PT HAD A MODERATE BM THAT WAS LIQUID CONSISTENCY. ONCE CLEANING PT UP, NOT INNER LEFT CHEEK, A SHEER STAGE 1 WOUND. BLANCHABLE. TRANSMISSION MECHANIC. WILL MONITOR CLOSELY. CONTINUING Q2HR TURNING.
--- NOTE | 2021-06-21 11:10 | NUR ---
DR GONZALEZ, INFECTION RESEARCH NEUROPSYCHOLOGIST, AND EXPLOSIVES HANDLER OF ICU STATES PT CAN COME OUT OF ISOLATION PRECAUTIONS TODAY IF IS MOVING UP TO MEDICAL FLOOR. ONLY WANT TO MOVE ONCE D/T SUPPLIES.
--- NOTE | 2021-06-21 12:13 | NUR ---
REPORT CALLED TO XI COWAN ON MEDICAL. PT TRANSFERRED IN BED TO 310 ON 5L VIA [place]. ALL PERSONAL BELONGINGS SENT WITH PT. PT'S NOTIFIED OF TRANSFER AND THAT SHE CAN NOW COME VISIT HIM UPSTAIRS. EXPLAINED VISITING POLICY TO , VERBALIZED UNDERSTANDING.
--- NOTE | 2021-06-21 14:47 | NUR ---
Patient transferred from ICU to room 310. Report recieved from XI Jacobson. Upon initial assessment, patient currently requiring 6L of O2 via nasal cannula. Patient alert but only partially oriented. VSS. Multiple skin issues noted in shift assessment. Medications, allergies, and pharmacy reviewed with Xiomara. Mendiola catheter in place. No kinks in tubing, securement device in place. Patient able to move extremities, but is extremely weak. Patient denies any pain, discomfort, or further needs at this time. Call light in reach. Fall percautions in place.
[2021-06-21] MEDS ORDERED: LYRICA 50MG CAP50 MG PO (14:57)
[2021-06-22 04:15] VITALS: BP 144/62; PULSE 72; TEMP 98.1
--- NOTE | 2021-06-22 05:46 | NUR ---
ASSESSMENT COMPLETE FOR THIS SHIFT. PT RESTING IN BED. PT DENIES PALPITATIONS, N,V, OR DIZZINESS. PT HAD SOME GENERALIZED PAIN. TYLENOL GIVEN FOR PAIN. PAIN RELIEVED PER PT. SENOKOT HELD FOR LOOSE STOOL. PT REPOSITIONED THROUGHOUT NIGHT. PT'S KEPT UP TO DATE WITH HIS CONDITION. PT EXPRESSED NO OTHER NEEDS AT THIS TIME. CALL LIGHT WITHIN REACH.
[2021-06-22 07:36] VITALS: BP 136/65; PULSE 69; TEMP 98.2
[2021-06-22 11:29] VITALS: BP 136/69; PULSE 68; TEMP 98.4
[2021-06-22 11:40] LABS: CALCIUM 8.1 mg/dL (8.4-10.2); CREATININE, serum 0.59 mg/dL (0.72-1.25); POTASSIUM 3.6 mmol/L (3.5-4.5)
[2021-06-22 16:13] VITALS: BP 129/70; PULSE 68; TEMP 98.2
--- NOTE | 2021-06-22 19:30 | NUR ---
PATIENT HAS HAD AN OK DAY. VSS. PATIENT A&O. CURRENTLY ON 4L OF O2. SCHEDULED MEDICATIONS GIVEN. SHIFT ASSESSMENT PERFORMED. JENKINS CATHETER IN PLACE. SECUREMENT DEVICE IN PLACE, NO KINKS IN TUBING. PATIENT DENIES ANY PAIN, DISCOMFORT, SOA, OR FUTHER NEEDS AT THIS TIME. CALL LIGHT IN REACH. FALL PERCAUTIONS IN PLACE.
[2021-06-22 21:11] VITALS: BP 139/68; PULSE 80; TEMP 98.6
[2021-06-23 00:18] VITALS: BP 136/70; PULSE 65; TEMP 98.3
[2021-06-23 04:12] VITALS: BP 136/68; PULSE 61; TEMP 98.4
--- NOTE | 2021-06-23 05:19 | NUR ---
No new issues noted or reported by patient throughout the night. Wore the BiPap throughout the night with no issues. Patient very pleasant.
[2021-06-23 06:36] LABS: BASO # 0.1 K/mm3 (0.0-0.2); BASO % 1.3 % (0.0-2.0); EOS # 0.8 K/mm3 (0.0-0.7); EOS % 9.9 % (0.0-4.0); GRAN # 4.4 K/mm3 (1.4-6.5); GRAN % 58.8 % (42.2-75.2); HEMOGLOBIN 10.4 g/dl (13.5-18.0); LYMPH # 1.5 K/mm3 (1.2-3.4); LYMPH % 20.4 % (20.0-51.0); MEAN CELL VOLUME 92 fl (80.0-100.0); MEAN CORPUSCULAR HEMOGLOBIN 29 pg (27-31); MEAN CORPUSCULAR HGB CONC 32 g/dl (33.0-37.0); MEAN PLATELET VOLUME 10.6 fl (7.4-10.4); MONO # 0.7 K/mm3 (0.1-0.6); MONO % 9.2 % (1.7-9.3); PLATELET COUNT 218 K/mm3 (130-400); RED BLOOD COUNT 3.58 M/mm3 (4.20-5.60); REDCELL DISTRIBUTION WIDTH-CV 15.7 % (11.5-14.5)
[2021-06-23 06:45] LABS: HEMATOCRIT 32.9 % (42.0-52.0)
[2021-06-23 07:00] LABS: ALBUMIN 2.9 gm/dL (3.4-4.8); CALCIUM 8.1 mg/dL (8.4-10.2); CREATININE, serum 0.55 mg/dL (0.72-1.25); POTASSIUM 3.6 mmol/L (3.5-4.5)
[2021-06-23 07:11] VITALS: BP 155/73; PULSE 65; TEMP 97.8
--- NOTE | 2021-06-23 07:18 | NUR ---
Upon assessment of patient's PICC, dressing saturated and a small amount of blood noted on bedding below PICC. Pressure dressing consisting of sterile gauze, abd pad, and foam tape used. RAMIRO Bennett notified. Informed to monitor at this time and contact XI Calzada upon her arrival to the facility.
[2021-06-23 11:32] VITALS: BP 116/61; PULSE 72; TEMP 98.5
--- NOTE | 2021-06-23 13:00 | NUR ---
Contacted by primary care nurse to change PICC dressing due to bleeding at site. Patient's right upper arm PICC was wrapped with foam tape and constricted his upper arm. Sterile dressing change done with insertion site cleansed with ChloraPrep x2, large amount of congealed blood removed, skin prep, StatLock, fibrin patch, and chlorhexidine impregnated disc applied and Tegaderm applied. No further drainage noted. Patient's right arm is soft and supple from elbow to wrist. His right lower arm is swollen. No other signs or symptoms of IV complications noted. Advised primary care nurse to inform nursing staff do not apply constrictive band around PICC. 4 x 4's applied on top of Tegaderm and an extra Tegaderm applied. An Ruddy wrap was applied to protect catheter.
--- NOTE | 2021-06-23 16:42 | NUR ---
Sedrick at [facility] notified that the patient's family would prefer the [place] location. Sedrick voices that he can try for that location but due to the limited number of beds it may have to be the location. Clinical updates faxed to Sedrick. Per hospitalist, Pt may benefit more from [facility] then [facility], however PT feels as if this patient would do better at a SNF. At this time the patient still qualifies for [facility] and we will stay on that route.
[2021-06-23 17:20] VITALS: BP 130/65; PULSE 69; TEMP 98.1
--- NOTE | 2021-06-23 18:00 | NUR ---
Patient has had an ok day. Currently requiring 4L of O2 via nasal cannula. Bipap at night. Scheduled medications given. Shift assessment performed. Patient tolerating PO. Patient repositioned Q2. Patient denies any pain, discomfort, SOA, or further needs at this time. Call light in reach. VSS. Patient A&O. Fall percautions in place.
[2021-06-23 20:45] VITALS: BP 129/64; PULSE 85; TEMP 97.8
[2021-06-24 00:15] VITALS: BP 132/61; PULSE 68; TEMP 97.9
[2021-06-24 03:51] VITALS: BP 141/68; PULSE 73; TEMP 98
[2021-06-24 06:37] LABS: BASO # 0.1 K/mm3 (0.0-0.2); BASO % 1.1 % (0.0-2.0); EOS # 0.7 K/mm3 (0.0-0.7); EOS % 9.9 % (0.0-4.0); GRAN # 4.3 K/mm3 (1.4-6.5); GRAN % 61.3 % (42.2-75.2); HEMOGLOBIN 10.7 g/dl (13.5-18.0); LYMPH # 1.3 K/mm3 (1.2-3.4); LYMPH % 18.4 % (20.0-51.0); MEAN CELL VOLUME 92 fl (80.0-100.0); MEAN CORPUSCULAR HEMOGLOBIN 29 pg (27-31); MEAN CORPUSCULAR HGB CONC 32 g/dl (33.0-37.0); MEAN PLATELET VOLUME 10.2 fl (7.4-10.4); MONO # 0.6 K/mm3 (0.1-0.6); MONO % 8.9 % (1.7-9.3); PLATELET COUNT 226 K/mm3 (130-400); RED BLOOD COUNT 3.66 M/mm3 (4.20-5.60); REDCELL DISTRIBUTION WIDTH-CV 15.9 % (11.5-14.5)
[2021-06-24 06:47] LABS: CALCIUM 8.1 mg/dL (8.4-10.2); CREATININE, serum 0.58 mg/dL (0.72-1.25); POTASSIUM 3.9 mmol/L (3.5-4.5)
[2021-06-24 06:57] LABS: HEMATOCRIT 33.5 % (42.0-52.0)
[2021-06-24 07:54] VITALS: BP 130/7; PULSE 82; TEMP 97.7
--- NOTE | 2021-06-24 08:30 | NUR ---
Assessment completed, alert/oriented, vital signs stable, denies pain/discomfort, no resp.difficulty noted/ lungs CTA with diminished bases, on 5L o2, heart RRR/ distal pulses are palpable, abd soft and BS+/ had BM this morning, coccyx reddened/ no breakdown , we are off loading and doing frequent position changes, Lovenox given for RLE DVT, no edema or redness noted, he has taken his morning meds and he is now eating breakfast, denies other needs at this time
[2021-06-24 11:33] VITALS: BP 125/67; PULSE 73; TEMP 97.4
--- NOTE | 2021-06-24 12:41 | NUR ---
sand worker and Sedrick from [facility] met with patient and patient's Xiomara at bedside to address wifes concerns about [facility] locations. Xiomara is concerned that the patient will sink into a deep depression and gain a higher level of anxiety if he was to go to the [place] location and Xiomara being unable to visit often. Concerns addressed and validated, however stressed upon her the importance of the patient's care needs and the lack of bed availability. is understanding of the situation and asks that if the patient cannot go to the [place] location then she is made known well in advance and is able to spend as much time as possible with the patient. Sedrick states that he does not know when he will have a bed open for this patient but is hoping for the end of this week.
--- NOTE | 2021-06-24 16:47 | NUR ---
Kam from PT feels as if this patient could make go progress through [facility]. Spoke with Sedrick at [facility] and is in favor that if the patient can be accepted to [facility] that would be best option. Referral made to Theresa in [facility] and Sedrick will continue to follow.
[2021-06-24 16:48] VITALS: BP 135/68; PULSE 78; TEMP 97.4
[2021-06-24 20:14] VITALS: BP 132/60; PULSE 80; TEMP 97.9
[2021-06-25 01:14] VITALS: BP 139/74; BP 152/48; PULSE 64; PULSE 76; TEMP 98.3
[2021-06-25 04:31] VITALS: BP 138/69; PULSE 81; TEMP 98
--- NOTE | 2021-06-25 05:45 | NUR ---
NO CLINICAL CHANGES OVERNIGHT, 02 5L NC,PICC PATENT AND FUNCTIONAL. PT REMAINS A/OX4 WITH A VERBAL AND COGNITIVE DELAY THAT THIS NURSE SUSPECTS DERIVES FROM ICU DELIRIUM. PT UPDATED LAST NIGHT OF STATUS. PT HAD UNEVENTFUL SHIFT. ALL NEEDS MET. CALL LIGHT WITHIN REACH. BED ALARM ON.
[2021-06-25 06:34] LABS: BASO # 0.1 K/mm3 (0.0-0.2); BASO % 0.8 % (0.0-2.0); EOS # 0.7 K/mm3 (0.0-0.7); EOS % 11.8 % (0.0-4.0); GRAN # 3.8 K/mm3 (1.4-6.5); GRAN % 59.8 % (42.2-75.2); HEMOGLOBIN 11.5 g/dl (13.5-18.0); LYMPH # 1.1 K/mm3 (1.2-3.4); LYMPH % 17.5 % (20.0-51.0); MEAN CELL VOLUME 90 fl (80.0-100.0); MEAN CORPUSCULAR HEMOGLOBIN 30 pg (27-31); MEAN CORPUSCULAR HGB CONC 33 g/dl (33.0-37.0); MONO # 0.6 K/mm3 (0.1-0.6); MONO % 9.6 % (1.7-9.3); PLATELET COUNT 258 K/mm3 (130-400); RED BLOOD COUNT 3.85 M/mm3 (4.20-5.60); REDCELL DISTRIBUTION WIDTH-CV 16.4 % (11.5-14.5)
[2021-06-25 06:49] LABS: CALCIUM 8.4 mg/dL (8.4-10.2); CREATININE, serum 0.59 mg/dL (0.72-1.25); POTASSIUM 3.9 mmol/L (3.5-4.5)
[2021-06-25 06:51] LABS: HEMATOCRIT 34.8 % (42.0-52.0)
[2021-06-25 08:01] VITALS: BP 123/73; PULSE 90; TEMP 98
[2021-06-25 11:47] VITALS: BP 153/76; PULSE 79; TEMP 97.5
[2021-06-25 12:20] VITALS: BP 106/72; PULSE 85; TEMP 97.8
[2021-06-25] MEDS ORDERED: MELATIN 3 MG-11 TAB PO (13:34)
[2021-06-25] MEDS ORDERED: TYLENOL 500MG500 MG PO (13:36)
[2021-06-25] MEDS ORDERED: IPRATROPIUM BROM3 M1 IH (13:36)
[2021-06-25] MEDS ORDERED: ELIQUIS 5MG PO (13:37)
[2021-06-25 15:27] VITALS: BP 126/71; PULSE 88; TEMP 97.4
--- NOTE | 2021-06-25 16:11 | NUR ---
Theresa, with [facility], reports that they are able to accept the patient today. The patient is to discharge to [facility] today, 06/25. JB updated Sedrick at [facility]. No additional needs at this time.
--- NOTE | 2021-06-25 17:20 | NUR ---
PATIENT TRANSFERRED TO [facility] UNIT.
== END 2021-06-25 17:20 | DRG 207 ==
LOC: ICU 15:06 → MEDICAL 06-21 13:23
PROVIDERS: Internal Medicine Pulmonary Disease; Physician Assistant; Student in an Organized Health Care Education/Training Program; ADMIT Student in an Organized Health Care Education/Training Program
PROC: 5A1955Z Respiratory Ventilation, Greater than 96 Consecutive Hours (ICD-10-PCS; principal; 2021-06-07)
PROC: 0BH17EZ Insertion of Endotracheal Airway into Trachea, Via Natural or Artificial Opening (ICD-10-PCS; 2021-06-07)
PROC: XW033E5 Introduction of Remdesivir Anti-infective into Peripheral Vein, Percutaneous Approach, New Technology Group 5 (ICD-10-PCS; 2021-06-07)
PROC: 06HY33Z Insertion of Infusion Device into Lower Vein, Percutaneous Approach (ICD-10-PCS; 2021-06-07)
PROC: 02HV33Z Insertion of Infusion Device into Superior Vena Cava, Percutaneous Approach (ICD-10-PCS; 2021-06-10)
PROC: 5A09357 Assistance with Respiratory Ventilation, Less than 24 Consecutive Hours, Continuous Positive Airway Pressure (ICD-10-PCS; 2021-06-23)
DX: U07.1 COVID-19 (principal); J12.82 Pneumonia due to coronavirus disease 2019; J96.01 Acute respiratory failure with hypoxia; I82.401 Acute embolism and thrombosis of unspecified deep veins of right lower extremity; G72.81 Critical illness myopathy; I10 Essential (primary) hypertension; G40.909 Epilepsy, unspecified, not intractable, without status epilepticus; K21.9 Gastro-esophageal reflux disease without esophagitis; Z66 Do not resuscitate; F32.A Depression, unspecified; F41.1 Generalized anxiety disorder; E87.6 Hypokalemia; I95.9 Hypotension, unspecified; Z79.82 Long term (current) use of aspirin; Z87.891 Personal history of nicotine dependence; Z73.0 Burn-out
CPT/HCPCS: OP; 99223-AI; 99232-AI; 99233-AI; 99239; C1751; J0330; J0696; J1100; J1650; J1815; J1940; J2250; J2405; J2543; J2704; J3010; J3480; J7040; J7060; Q0249

== ENCOUNTER 2021-06-25 16:11 | Inpatient (IN) | payer MEDICARE ==
[~2021-06-25] VITALS: Ht 180.3 cm; Wt 71.2 kg
[~2021-06-25 16:11] MED LIST: ASPIRIN 81M81 MG/TA2 PO; DEPAKOTE 250MG250 MG PO; ELIQUIS 5MG PO; HYZAAR 25 MG-101 TAB PO; IPRATROPIUM BROM3 M1 IH; LYRICA 50MG CAP50 MG PO; MELATIN 3 MG-11 TAB PO; MULTI VITAMINS1 TAB PO; NATURE'S BLE1000 MCG; OMEGA-3 1000 MG1 CAP PO; PEPCID 20MG TAB20 MG PO; PROSCAR 5MG5 MG PO; TURMERIC500 MG PO; TYLENOL 500MG500 MG PO; VITAMINC1000TA; ZOLOFT 100MG100 MG PO
[2021-06-25 18:19] VITALS: BP 116/67; PULSE 78; TEMP 97.3
--- NOTE | 2021-06-25 18:30 | NUR ---
PT SITTING UP IN BED. UNABLE TO FEED SELF. TOO WEAK. ASSISTED WITH FEEDING. EASILY FATIGUED. O2 5L NC. DENIES PAIN. ATE POORLY. CALL LIGHT IN REACH. BED ALARM SET.
--- NOTE | 2021-06-26 00:46 | NUR ---
PT FEELS SOME ANXIETY ON BIPAP. RESP 42/MIN. O2 SAT 98%. NOTIFIED RT. OFF BIPAP FOR NOW. WILL TRY AGAIN LATER.
[2021-06-26 04:15] VITALS: BP 114/62; PULSE 79; TEMP 98.3
--- NOTE | 2021-06-26 06:43 | NUR ---
Report received from XI Barker. Patient is in bed sleep. Call light and bedside table are within reach. Will continue to monitor throughout shift.
--- NOTE | 2021-06-26 14:56 | NUR ---
SW met with the patient to complete intake, as the patient is new to [facility]. The patient lives in [place] with his , Xiomara (ph#[phone]). He reports independence with ADLs before hospitalization and has a walker and wheelchair. He states that their home is handicap accessible. The patient's PCP is Dr. Allison Marques and he reports that he utilizes whatever pharmacy is cheaper. The patient's DPOA-HC is in EMR and it designates his . The alternate is [facility] Flood. The patient reports that today is going better than yesterday. He had no concerns for SW at this time. SW to continue to follow.
--- NOTE | 2021-06-26 15:02 | NUR ---
Initial visit; Patient and his family thanked Account Installer for looking in on him and offering encouragement and blessings. Campos was receptive to Account Installer keeping him in her prayers.
[2021-06-26 17:37] VITALS: BP 123/63; PULSE 81; TEMP 98.5
--- NOTE | 2021-06-26 20:15 | NUR ---
RESTING IN BED. A&OX4. ASKING QUESTIONS. CONVERSING. WAS TALKING TO ON CELLPHONE EARLIER. REPOSITIONED IN BED. NO PAIN. O2 5L NC. NO DISTRESS. CALL LIGHT IN REACH. BED ALARM SET.
[2021-06-27 04:59] VITALS: BP 127/63; PULSE 67; TEMP 98.2
--- NOTE | 2021-06-27 07:42 | NUR ---
Pt assessment complete. Pt is laying in bed upon entry, he is A/O x4, slower response time but speech is appropriate. Pt's breathing is even and unlabored on 5L O2 via NC. Pt denies SOB at rest, does endorse this with exertion. Pt denies any pain. No N/V. Assisted patient in sitting up on the side of the bed for breakfast, will assist in dressing when complete. Call light within reach.
[2021-06-27 17:53] VITALS: BP 124/75; PULSE 96; TEMP 97.4
--- NOTE | 2021-06-27 20:30 | NUR ---
Patient is resting in bed, alert and oriented x 4, denies pain, nausea or vomiting. Refused SCDs and Gaymar boots. 5L O2 NC. Assessment completed, medications provided. No other needs at this time. Call light within reach.
[2021-06-28 06:03] VITALS: BP 106/53; PULSE 68; TEMP 97.9
--- NOTE | 2021-06-28 06:54 | NUR ---
Pt has had a calm night. He was assisted to use the comode once. Pt complain of gasses but had no BM. Report will be given to day RN.
--- NOTE | 2021-06-28 09:46 | NUR ---
PT OFF FLOOR WITH OT TO GYM
--- NOTE | 2021-06-28 10:53 | NUR ---
PT RETURNED TO ROOM WITH OT FROM GYM.
[2021-06-28 17:11] VITALS: BP 126/64; PULSE 88; TEMP 97.8
--- NOTE | 2021-06-28 19:07 | NUR ---
PT SITTING UP ON SIDE OF BED. STATES THAT HE WANTS TO GO TO BED AND "GET TUCKED IN." PT WAS ABLE TO MOVE LEGS INTO BED. COVERED PT UP. PT STATES THAT HE DOES NOT NEED ANYTHING AT THIS TIME. CALL LIGHT IS WITHIN REACH.
--- NOTE | 2021-06-28 19:51 | NUR ---
Patient is resting in bed talking with his by cellphone. Alert and oriented x 4, VSS. Asked for some tums or pepto bismol due to some dicomfort in his stomack and retention of gasses. 5L O2 NC. Assessment completed, medications provided, no further needs at this time. Call light within reach.
[2021-06-29 05:58] VITALS: BP 122/64; PULSE 71; TEMP 98.3
--- NOTE | 2021-06-29 06:13 | NUR ---
Neil has had an uneventful night. He has been able to rest. Report will be given to day RN.
--- NOTE | 2021-06-29 06:40 | NUR ---
PATIENT ASLEEP IN BED. CALL LIGHT WITHIN REACH.
--- NOTE | 2021-06-29 10:19 | NUR ---
PT FINISHED WITH BREAKFAST. LAYING SUPINE IN BED. PT STATES THAT HE IS NOT HAVING ANY PAIN AT THIS TIME. PT STATES NO OTHER NEEDS. CALL LIGHT IS WITIN REACH.
--- NOTE | 2021-06-29 11:03 | NUR ---
PT UP IN SHOWER WITH . PT STATES THAT HE IS READY TO RETURN TO BED. NEW MEPILEX WAS APPLIED TO BUTT. ASSISTED PT VIA WALKER TO RETURN TO BED. GAIT BELT ON AND WALKED BEHIND PT ALL THE WAY TO THE BED. PT SITTING AT SIDE OF BED. STATES THAT SHE WANTS TO SHAVE HIM. GOT PT A CUP FOR WATER. NO OTHER NEEDS EXPRESSED AT THIS TIME. CALL LIGHT WAS PLACED WITHIN REACH.
[2021-06-29 17:26] VITALS: BP 128/62; PULSE 89; TEMP 97.9
--- NOTE | 2021-06-29 17:42 | NUR ---
PT SITTING UP ON SIDE OF BED. STATES THAT HE IS DONE WITH HIS DINNER. STATES "I DO NOT NEED ANYTING ELSE RIGHT NOW." PT STATES THAT HE IS NOT HAVING ANY PAIN. CALL LIGHT IS WITHIN REACH.
--- NOTE | 2021-06-29 20:26 | NUR ---
ALERT AND OX4. DENIES SOA, CHEST PAIN OR DIZZY. UP TO COMMODE W STANDBY ASST AND DOES WELL. PM MEDS GIVEN. READY FOR BED. CALL LIGHT WI REACH.
[2021-06-30 05:16] VITALS: BP 105/60; PULSE 66; TEMP 98
--- NOTE | 2021-06-30 08:42 | NUR ---
Pt doing well this morning. He was awake for bedside shift report. He is making phone calls to his family during that time. Pt had no complaints or needs. Pt had and tolerated breakfast and has no pain complaints. Assisted pt to the commode. Discussed the bathroom, but he reported that he did not think he could make it. Pt is on O2 per NC at 5L. Mepilex dressing to coccyx, will remove and assess at a later time.
--- NOTE | 2021-06-30 14:12 | NUR ---
Admission QIM scores were reviewed by the team. Code of 5 chosen for eating was determined by team discussion to be the most usual performance for this patient during the assessment period. Code of 3 chosen for rolling left to right was determined by team discussion to be the most usual performance before interventions for this patient during the assessment period. Code of 2 chosen for sit to lying was determined by team discussion to be the most usual performance before interventions for this patient during the assessment period. Code of 3 chosen for lying to sitting on side of bed was determined by team discussion to be the most usual performance for this patient during the assessment period. Code of 1 for sit to stand was determined by team discussion to be the most usual performance for this patient during the assessment period. Code of 1 for chair/bed to chair transfers was determined by team discussion to be the most usual performance for this patient during the assessment period.--Theresa Akhtar, PD
--- NOTE | 2021-06-30 14:54 | NUR ---
SW met with the patient to follow up after the weekend. The patient states that he is doing good and that the weekend was good. He states that Wednesday was trying though, but he struggled through and made it. He had no concerns for SW at this time.
[2021-06-30 15:41] VITALS: BP 106/52; PULSE 73; TEMP 98.3
--- NOTE | 2021-06-30 20:46 | NUR ---
ALERT ANDO3. DENIES SOA, CHEST PAIN OR DIZZY. PM MEDS GIVEN. RT UPPER PICC FLUSHED. MEPILEX TO BOTTOM C/D/I. CALL LIGHT WI REACH.
[2021-06-30] MEDS ORDERED: NEURONTIN100 MG/CAP PO (21:46)
--- NOTE | 2021-07-01 04:53 | NUR ---
Rested through the night without incident. Call light wi reach. Needs met.
[2021-07-01 05:24] VITALS: BP 132/65; PULSE 74; TEMP 98.1
--- NOTE | 2021-07-01 09:18 | NUR ---
PT UP TO BATHROOM THIS MORNING WITH SBA. DENIES FEELING SHORT OF BREATH. HAD BM. DRESSING INTACT TO [facility]. PT EXPLAINED HE HAD DIFFICULTIES WITH HIS RESTLESS LEGS LAST NIGHT, GABAPENTIN WAS ORDERED BUT AFTER SPEAKING WITH THIS MORNING, HE STATED LYRICA HAS WORKED BETTER FOR HIM IN THE PAST. DENIES FURTHER NEEDS AT THIS TIME.
[2021-07-01 17:29] VITALS: BP 119/69; PULSE 85; TEMP 98.2
--- NOTE | 2021-07-01 21:24 | NUR ---
ALERT AND OX4. AMB TO BR W STAND BY ASST GETTING EASIER, PT FEELS STRONGER. PM MEDS GIVEN ALONG W PRN MELATONIN. PT STATES HE HAS INSOMNIA TONIGHT. O2 AT 4L/NC. CALL LIGHT WI REACH. LIGHTS DOWN.
[2021-07-02 04:10] VITALS: BP 112/56; PULSE 72; TEMP 98.4
--- NOTE | 2021-07-02 07:25 | NUR ---
Report received from XI Ferrer. Patient is in the bathroom and reported no BM. Patient is currently back in bed. Call light and bedside table are within reach. Will continue to monitor patient throughout shift.
--- NOTE | 2021-07-02 10:56 | NUR ---
PICC discharged by XI Calzada. Patient tolerated procedure well. Will continue to monitor patient throughout shift.
--- NOTE | 2021-07-02 16:08 | NUR ---
JB contacted the patient's , Xiomara, and reviewed the IPR Team Conference Note. The team has set a discharge date for next Wednesday, 07/11. Services upon discharge are TBD. The patient's is in agreement to the plan and states that she would prefer home health. A patient/family meeting has been set up for next Wednesday, 07/07, at 1300. JB notified IPR Director.
[2021-07-02 16:41] VITALS: BP 124/68; PULSE 79; TEMP 99
[2021-07-03 05:02] VITALS: BP 116/63; PULSE 65; TEMP 97.9
--- NOTE | 2021-07-03 06:07 | NUR ---
PATIENT RESTED QUIETLY IN BED THROUGHOUT THE NIGHT. PATIENT AMBULATED WITH WALKER AND GAIT BELT THREE TIMES THIS SHIFT TO THE BATHROOM. PATIENT STEADY WITH WALKER. NO NEW ISSUES NOTED BY THIS NURSE OR REPORTED BY PATIENT. PATIENT RESTING IN BED AT THIS TIME. CALL LIGHT WITHIN REACH.
--- NOTE | 2021-07-03 07:22 | NUR ---
Report recieved from XI Camejo. Patient is sleeping in bed. Call light and bedside table are within reach. Will continue to monitor patient throughout shift.
--- NOTE | 2021-07-03 09:20 | NUR ---
The patient/family meeting was rescheduled to Wednesday, 07/07, at 0930. SW updated IPR Director.
[2021-07-03 18:00] VITALS: BP 114/56; PULSE 70; TEMP 98.2
[2021-07-03 18:21] VITALS: BP 114/56; PULSE 70; TEMP 98.2
--- NOTE | 2021-07-03 21:00 | NUR ---
ASSISTED PT TO BR WITH WALKER. FRED WELL. GETTING MORE STEADY AND STRONGER. PT DENIES PAIN. BACK TO BED. CALL LIGHT IN REACH. BED ALARM SET.
[2021-07-04 05:07] VITALS: BP 132/56; PULSE 67; TEMP 97.7
--- NOTE | 2021-07-04 05:55 | NUR ---
PT HAD UNEVENTFUL NIGHT. RESTED WELL WITH MELATONIN.
--- NOTE | 2021-07-04 17:20 | NUR ---
PT NOW USING CANE TO AMBULATE. PT DENIES SHORTNESS OF BREATH. PT PROGRESSING WITH THERAPY WELL. POSSIBLE DISCHARGE NEXT WEEK WITH HOME HEALTH.
[2021-07-04 17:40] VITALS: BP 102/60; PULSE 75; TEMP 98.5
--- NOTE | 2021-07-04 20:18 | NUR ---
AMB TO BR WITH CANE. SL UNSTEADY. VOIDING W/O DIFFICULTY. O2 4L NC. NO RESP DISTRESS. MILDLY DYSPNEIC W/ACTIVITY. CALL LIGHT IN REACH. BED ALARM SET.
[2021-07-05 06:16] VITALS: BP 121/59; PULSE 69; TEMP 97.7
--- NOTE | 2021-07-05 06:50 | NUR ---
Report received from XI Barker. Patient is sleeping in bed. Call light and bedside table are within reach. Will continue to monitor patient throughout shift.
--- NOTE | 2021-07-05 08:30 | NUR ---
Patient is unsteady with cane but stated he just starting using it
[2021-07-05 17:48] VITALS: BP 133/76; PULSE 76; TEMP 97.8
--- NOTE | 2021-07-05 19:48 | NUR ---
CALLED. PT DOESN'T WANT TO TAKE MELATONIN BUT WILL TAKE TYLENOL PM. NOTIFIED CAT RUIBO. NEW ORDER NOTED.
--- NOTE | 2021-07-05 21:07 | NUR ---
NO NEED AT THIS TIME. SEE MAR FOR TYLENOL AND BENADRYL GIVEN FOR SLEEP. PER REQUEST.
[2021-07-06 05:33] VITALS: BP 128/65; PULSE 66; TEMP 97.6
--- NOTE | 2021-07-06 06:52 | NUR ---
Report received from XI Barker. Patient is sleep in bed. Call light and bedside table are within reach. Will continue to monitor patient throughout shift.
--- NOTE | 2021-07-06 10:00 | NUR ---
Patient's is at bedside
[2021-07-06 17:31] VITALS: BP 127/69; PULSE 85; TEMP 98.2
--- NOTE | 2021-07-06 21:08 | NUR ---
AMB IN [place] TONIGHT FRED WELL, HAD TO STOP ONCE TO REST. O2 AT 3L NC. SHIFT ASSESSMENT COMPLETED. CALL LIGHT IN REACH. BED ALARM SET.
--- NOTE | 2021-07-06 21:11 | NUR ---
SEE MAR FOR TYLENOL AND BENADRYL GIVEN FOR SLEEP.
--- NOTE | 2021-07-07 02:00 | NUR ---
ASSISTED PT UP TO BSC. HAD BM. [facility] CLEANED AREA. SEE ORDER FOR DESENEX POWDER.
[2021-07-07 04:12] VITALS: BP 132/63; PULSE 72; TEMP 98
--- NOTE | 2021-07-07 06:11 | NUR ---
PT SLEPT WELL THIS NIGHT. NO COMPLAINTS.
[2021-07-07 06:55] LABS: HEMOGLOBIN 11.3 g/dl (13.5-18.0); MEAN CELL VOLUME 96 fl (80.0-100.0); MEAN CORPUSCULAR HEMOGLOBIN 30 pg (27-31); MEAN CORPUSCULAR HGB CONC 32 g/dl (33.0-37.0); MEAN PLATELET VOLUME 9.4 fl (7.4-10.4); PLATELET COUNT 300 K/mm3 (130-400); RED BLOOD COUNT 3.74 M/mm3 (4.20-5.60); REDCELL DISTRIBUTION WIDTH-CV 15.6 % (11.5-14.5)
[2021-07-07 07:11] LABS: HEMATOCRIT 35.9 % (42.0-52.0)
[2021-07-07 07:22] LABS: CALCIUM 8.2 mg/dL (8.4-10.2); CREATININE, serum 0.56 mg/dL (0.72-1.25); MAGNESIUM 2.1 mg/dL (1.6-2.6); POTASSIUM 3.9 mmol/L (3.5-4.5)
[2021-07-07 08:37] LABS: BAND 2 % (0-10); EOSINOPHIL 16 % (0-4); LYMPHOCYTE 32 % (20.0-51.0); NEUTROPHILS 43 % (42.0-75.2); PLATELET ESTIMATE NORMAL (NORMAL)
--- NOTE | 2021-07-07 09:57 | NUR ---
Follow-up visit; Patient thanked Inspector Open Die for offering stopping by and offering God's blessings.
--- NOTE | 2021-07-07 10:02 | NUR ---
JB attended the patient/family meeting. The patient's , Xiomara, at bedside. Also present was IPR Director, PT, OT, and ST. IPR Director started by explaining the purpose of the meeting. PT/OT/ST then discussed the patient's progress so far and how he has improved. The patient reports that he is getting antsy here and asked if he could discharge sooner than Wednesday. He was hoping he can discharge by Wednesday. The team is in agreement to this and will make him Modified Independent today. The team informed the patient and his how they would recommend outpatient PT/OT vs home health. The patient and his prefer home health at this time. An exercise oximetry will be ordered tomorrow to determine if the patient will qualify for home oxygen. JB informed the patient and Xiomara of the local DME companies around [place] and the companies in [place]. Xiomara reports that they would prefer to use a DME company in [place]. The team answered all questions. JB then followed up with Xiomara and provided her with Medicare.gov's list of home health agencies that serve [place]. Xiomara chose [facility]. JB contacted and faxed a referral to Negar at [facility]. Negar reports that they are able to accept the patient for services. *Discharge plan: home with and home health on 07/09*
[2021-07-07 15:47] VITALS: BP 121/59; PULSE 77; TEMP 98.1
--- NOTE | 2021-07-07 19:13 | NUR ---
RECEIVED CHANGE OF SHIFT REPORT FROM DAY SHIFT RN.
[2021-07-08 06:40] VITALS: BP 129/63; PULSE 74; TEMP 97.9
--- NOTE | 2021-07-08 07:26 | NUR ---
CHANGE OF SHIFT REPORT GIVEN TO DAY SHIFT RNJENNIFER. PATIENT UP IN ROOM INDEPENDENTLY WITH CONTINUOUS OXYGEN, AT 3 LPM. SLEPT FOR MOST OF NIGHT WITH NO REPORTED NEEDS OR COMPLAINTS OBSERVED. BREATHING NONLABORED AND EVEN ON ROUNDS.
[2021-07-08] MEDS ORDERED: ELIQUIS 5MG PO (09:33)
[2021-07-08] MEDS ORDERED: PEPCID 20MG TAB20 MG PO (09:38)
[2021-07-08] MEDS ORDERED: LYRICA 50MG CAP50 MG PO (09:40)
--- NOTE | 2021-07-08 14:58 | NUR ---
patient required 8L post walk, also recently finished therapy before hand and seemed a little tired.
--- NOTE | 2021-07-08 15:21 | NUR ---
JB staffed with RT. The patient qualified for 8 liters of oxygen with ambulation. JB notified the PA and obtained the script for the oxygen. JB met with the patient to review the discharge plan for tomorrow. The patient's , Xiomara, was on speaker phone. The patient and his are in agreement to the plan. Xiomara states that the patient has been using a humidifier with the oxygen and asks if they can get one. They are agreeable to using [facility]. JB presented and read the IM form outloud to the patient. The patient verbalized understanding and signed the form. JB provided him with a copy. JB then contacted and faxed the oxygen order and humidifier order to Mark at [facility]. Mark reports that they can deliver the oxygen to the patient's room tomorrow.
[2021-07-08 18:14] VITALS: BP 127/62; PULSE 73; TEMP 98.7
--- NOTE | 2021-07-08 19:22 | NUR ---
RECEIVED CHANGE OF SHIFT REPORT FROM DAY SHIFT RN. PATIENT UP IN ROOM INDEPENDENTLY WITH NO REPORTED PROBLEMS OR CONCERNS. DENIES ANY NEEDS AT TIME OF REPORT.
[2021-07-09 06:21] VITALS: BP 130/62; PULSE 71; TEMP 98
--- NOTE | 2021-07-09 07:31 | NUR ---
Report received by XI Durán. Patient is sleeping in bed. Call light and bedside table are within reach. Will continue to monitor patient throughout shift.
--- NOTE | 2021-07-09 07:44 | NUR ---
CHANGE OF SHIFT REPORT GIVEN TO DAY SHIFT SYD LAYNE. CALL LIGHT WITHIN REACH.
--- NOTE | 2021-07-09 10:28 | NUR ---
JB contacted Mark at [facility] to follow up about the oxygen. Mark reports that they will deliver the oxygen to the patient's room around noon today. JB met with the patient and his , Xiomara, and updated them on the above. JB also reviewed the discharge plan again for home with home health from [facility]. The patient and his are in agreement to the plan. The patient's informed JB that they are interested in getting a shower chair that luis manuel to the wall and can fold up. She reports that she plans on purchasing one online, but has another one they can use in the meantime. The patient is to discharge back home with his today, 07/09, with home health services for long-term/PT/OT from [facility]. JB notified Negar at [facility]. JB to fax orders to [facility], once finalized. No additional needs at this time.
--- NOTE | 2021-07-09 14:15 | NUR ---
Patient is in good spirit and has no new complaints. Call light and bedside table are within reach. Will continue to monitor patient throughout shift.
== END 2021-07-09 14:30 | disposition home health service (06) | DRG 91 ==
PROVIDERS: Internal Medicine; ADMIT Physical Medicine & Rehabilitation Sports Medicine
DX: G72.81 Critical illness myopathy (principal); U07.1 COVID-19; J12.82 Pneumonia due to coronavirus disease 2019; J96.01 Acute respiratory failure with hypoxia; I82.401 Acute embolism and thrombosis of unspecified deep veins of right lower extremity; L89.312 Pressure ulcer of right buttock, stage 2; L89.151 Pressure ulcer of sacral region, stage 1; R26.89 Other abnormalities of gait and mobility; K21.9 Gastro-esophageal reflux disease without esophagitis; Z66 Do not resuscitate; F32.A Depression, unspecified; F41.1 Generalized anxiety disorder; I10 Essential (primary) hypertension; M54.59 Other low back pain; G40.909 Epilepsy, unspecified, not intractable, without status epilepticus; L53.8 Other specified erythematous conditions; E87.6 Hypokalemia; K59.00 Constipation, unspecified; Z99.81 Dependence on supplemental oxygen; Z73.6 Limitation of activities due to disability; Z79.01 Long term (current) use of anticoagulants; Z79.899 Other long term (current) drug therapy; Z79.82 Long term (current) use of aspirin; Z88.2 Allergy status to sulfonamides; Z88.8 Allergy status to other drugs, medicaments and biological substances; Z88.5 Allergy status to narcotic agent; I95.9 Hypotension, unspecified; G62.9 Polyneuropathy, unspecified; G25.81 Restless legs syndrome; G89.29 Other chronic pain
CPT/HCPCS: 99222; 99232-AI